=== PATIENT | male | born 1950 | race Caucasian/White ===

== ENCOUNTER 2021-06-20 00:57 | Day surgery (SDC) | payer MEDICARE, SELFPAY ==
[2021-06-12 11:22] VITALS: BMI 28.5
[2021-06-20 06:50] VITALS: BP 108/65; PULSE 64; RESP 20; TEMP 36.5; O2SAT 99; BMI 27.7
[2021-06-20] MEDS: LACTATED RINGERS 1,000 ML 150 ML IV CONT (06:57)
--- NOTE | 2021-06-20 07:19 | P.CONGI_ITS ---
Assessment and Plan Assessment and plan (1) Hx of colonic polyps: Code(s): Z86.010 - Personal history of colonic polyps Status: Acute Assessment and Plan: Patient has had colon polyps on previous examinations. He presents today for surveillance examination. Currently experiences no GI symptoms. Further recommendations to be given after endoscopy. Continue follow-up at 5 year intervals is advised. GI Consult Note Consult date/time: 06/20/21 07:19 HPI: Vimal Teixeira is a 70 year old male Presents for screening colonoscopy. Patient's current weight appetite bowel movements are normal. He denies abdominal pain. He has had no bleeding. Patient has had colon polyps on p revious examinations. Most recent examination was 7 years ago. Patient reports he has had no significant change in medical history during the intervening time. He has had no bleeding. Family history is noncontributory. [facility] Past Medical History Medical History (Updated 03/13/21 @ 21:48 by Ronda Castellanos MD) Gastroesophageal reflux High cholesterol Hx of colonic polyps Hypothyroidism Mixed hyperlipidemia Surgical History Surgical History S/P ACL repair Family History Family History Father Hypertension High cholesterol Cerebrovascular accident Skin cancer Mother Breast cancer COPD (chronic obstructive pulmonary disease) Glaucoma Grandparent Heart disease Carcinoma of colon Social History Social History Smoking status: Never smoker Second hand tobacco smoke exposure: No Alcohol intake: current Alcohol use details: Rare drinking Substance use: never Substance use type: does not use Living arrangements: alone Gender identity (if verbalized by the patient): Male Spiritual care concerns: No Meds Home Medications and Allergies Home Medications Medication Instructions Recorded Confirmed Type cholecalciferol (vitamin D3) 50 50 mcg PO DAILY 04/14/20 06/12/21 History mcg (2,000 unit) capsule coenzyme Q10 100 mg capsule 100 mg PO DAILY 04/14/20 06/12/21 History multivitamin 1 tablet PO DAILY 04/14/20 06/12/21 History levothyroxine 25 mcg tablet 25 mcg PO DAILY #90 tablet 03/13/21 06/12/21 Rx omeprazole 20 mg PO PRN PRN 06/12/21 06/12/21 History pravastatin 40 mg tablet 40 mg PO DAILY #90 tablet 06/19/21 06/20/21 Rx Allergies Allergy/AdvReac Type Severity Reaction Status Date / Time No Known Allergies Allergy Verified 06/20/21 06:41 Vital Signs Vital Signs - 24 hr 06/20/21 06:50 Temperature 97.7 F Pulse Rate 64 Respiratory Rate 20 Blood Pressure 108/65 Pulse Oximetry 99 Exam Narrative: Physical exam reveals patient to be alert. Vital signs stable. HEENT exam is unremarkable. Patient is anicteric. Lungs are clear to auscultation and percussion. Heart is without murmur or extra sounds. Abdominal exam bowel sounds are present soft nontender with no organomegaly. Digital external rectal exam is normal.
--- NOTE | 2021-06-20 08:01 | P.PNAN_ITS ---
Anes - Initial Pre Proc Eval Procedure: Operation Date: 06/20/21 08:00 Proposed Procedures p Screening Colonoscopy - Jose Rodarte MD Date/Time: 06/20/21 08:01 Surgeon: Jose Rodarte MD Pre Op Diagnosis: hx of colon polyps Patient Data Age: 70 Gender: M Height: 1.75 m Weight: 85.3 kg Last Vital Signs Temp 97.7 F 06/20/21 06:50 Pulse 64 06/20/21 06:50 Resp 20 06/20/21 06:50 BP 108/65 06/20/21 06:50 Pulse Ox 99 06/20/21 06:50 Allergies Allergy/AdvReac Type Severity Reaction Status Date / Time No Known Allergies Allergy Verified 06/20/21 06:41 Home Medications Medication Instructions Recorded Confirmed Type cholecalciferol (vitamin D3) 50 50 mcg PO DAILY 04/14/20 06/12/21 History mcg (2,000 unit) capsule coenzyme Q10 100 mg capsule 100 mg PO DAILY 04/14/20 06/12/21 History multivitamin 1 tablet PO DAILY 04/14/20 06/12/21 History levothyroxine 25 mcg tablet 25 mcg PO DAILY #90 tablet 03/13/21 06/12/21 Rx omeprazole 20 mg PO PRN PRN 06/12/21 06/12/21 History pravastatin 40 mg tablet 40 mg PO DAILY #90 tablet 06/19/21 06/20/21 Rx Patient hx anesthesia problems: none Family hx anesthesia problems: none Results Review: All pre-operative results and documents have been reviewed as part of the pre-operative evaluation. ON LICENSE OF [facility] Past Medical History Medical History (Updated 03/13/21 @ 21:48 by Ronda Castellanos MD) Gastroesophageal reflux High cholesterol Hx of colonic polyps Hypothyroidism Mixed hyperlipidemia Surgical History Surgical History S/P ACL repair Family History Family History Father Hypertension High cholesterol Cerebrovascular accident Skin cancer Mother Breast cancer COPD (chronic obstructive pulmonary disease) Glaucoma Grandparent Heart disease Carcinoma of colon Social History Social History Smoking status: Never smoker Second hand tobacco smoke exposure: No Alcohol intake: current Alcohol use details: Rare drinking Substance use: never Substance use type: does not use Living arrangements: alone Gender identity (if verbalized by the patient): Male Spiritual care concerns: No Anes - Eval Final PreProcedure Day of Procedure 06/20/21 08:01 Patient weight: normal Heart: regular rate and rhythm Lungs: clear to auscultation Airway: Mallampati scale class II Neurological: alert and oriented Last oral intake: >/= 8 hours ASA classification: II Emergent: no Anesthetic plan: proceed Anesthesia type and monitoring: general GIVS and standard monitoring Results Review: All pre-operative results and documents have been reviewed as part of the pre-operative evaluation. Informed Consent: The patient's anesthetic plan and its attendant risks and benefits were discussed with the patient/family/POA. Questions were solicited and answers provided to the satisfaction of the patient/family/POA.
[2021-06-20 08:20] VITALS: BP 97/65; PULSE 59; RESP 26; O2SAT 97
[2021-06-20 08:30] VITALS: BP 100/69; PULSE 56; RESP 18; O2SAT 100
[2021-06-20 08:40] VITALS: BP 109/73; PULSE 58; RESP 19; O2SAT 100
== END 2021-06-20 08:44 | disposition home or self-care (01) ==
PROVIDERS: PCP Family Medicine; Visit Provider Internal Medicine Gastroenterology
PROC: 0DJD8ZZ Inspection of Lower Intestinal Tract, Via Natural or Artificial Opening Endoscopic (ICD-10-PCS; CPT 45378; principal; 2021-06-20 08:00)
DX: Z12.11 Encounter for screening for malignant neoplasm of colon (principal); D12.2 Benign neoplasm of ascending colon; K64.8 Other hemorrhoids; E03.9 Hypothyroidism, unspecified; E78.2 Mixed hyperlipidemia; K21.9 Gastro-esophageal reflux disease without esophagitis
CPT/HCPCS: 45385; 88305; J2704; J7120

== ENCOUNTER 2024-06-10 11:28 | Outpatient (CLI) | payer MEDICARE, SELFPAY ==
--- NOTE | ~2024-06-10 | XR_ITS ---
3 VIEWS THORACIC SPINE Ordering provider: Rosalie Black PA-C History: . M54.50 - Low back pain, unspecified . Comparison: None. FINDINGS: VERTEBRAL BODIES: Normal height and alignment. No visible fracture or subluxation. Degenerative peña es of the spine. DISK SPACES: Multilevel degenerative disc disease. SOFT TISSUES: Normal. IMPRESSION: No acute osseous abnormality of the thoracic spine. Multilevel degenerative disc disease. Reviewed, dictated and finalized at location A. D COOK
--- NOTE | ~2024-06-10 | XR_ITS ---
3 VIEWS LUMBAR SPINE Ordering provider: Rosalie Black PA-C History: . M54.50 - Low back pain, unspecified . Comparison: None. FINDINGS: VERTEBRAL BODIES:Lucencies are projected over the L5 vertebra which may be artifactual fracture is le ss likely. Clinical correlation and if warranted CT evaluation advised. No visible subluxation. DISK SPACES: Narrowing of the disc L4-L5 and L5-S1. Facet joint disease at the level of L4-L5 and L5-S1. SOFT TISSUES: Normal. Right sacroiliitis. IMPRESSION: No definite acute osseous abnormality lumbar spine. Clinical correlation advised. Multilevel degenerative disc disease. Reviewed, dictated and finalized at location A. DEVELOPER IMPRESSION: No definite acute osseous abnormality lumbar spine. Clinical correlation advise d. Multilevel degenerative disc disease.
== END 2024-06-10 11:29 | disposition home or self-care (01) ==
LOC: MICIMG 11:30
PROVIDERS: PCP Family Medicine; Visit Provider Student in an Organized Health Care Education/Training Program
DX: M51.369 Other intervertebral disc degeneration, lumbar region without mention of lumbar back pain or lower extremity pain (principal); M51.370 Other intervertebral disc degeneration, lumbosacral region with discogenic back pain only; M51.34 Other intervertebral disc degeneration, thoracic region
CPT/HCPCS: 72070; 72100

== ENCOUNTER 2024-06-17 12:47 | Outpatient (CLI) | payer MEDICARE, SELFPAY ==
--- NOTE | ~2024-06-17 | CT_ITS ---
CT lumbar spine wo con Ordering provider: Rosalie Black PA-C History: 73 years Male with . M54.50 - Low back pain, unspecified . Comparison: None. Technique: CT lumbar spine without contrast. Automated exposure control and iterative reconstruction technique were employed. The dose-length product was 852.87 mGy-cm. FINDINGS: VERTEBRAE: Normal height and alignment. No subluxation or visible acute fracture. Degenerative change s of the spine. DISC SPACES: Narrowing of the disc L2-L3, L4-L5 and L5 is noted. Schmorl's node is seen inferiorly in L2. Narrowing of the disc L3-4, L4-L5 and L5-S1. Facet joint disease at the level of L2-L3 bilateral ly. T12-L1: No stenosis. L1-L2: No stenosis. L2-L3: No stenosis. Mild diffuse disc bulge. L3-L4: No stenosis. Diffuse disc bulge. L4-L5: No stenosis. Central disc protrusion with osteophyte. Narrowing of the foramina by osteophyte s. Nerve root compression is noted. L5-S1: No stenosis. Central disc protrusion with osteophytes. Narrowing of the foramina is seen bila terally with possible compression. PARASPINOUS SOFT TISSUES: Normal aorta. Fusion is seen in both sacroiliac joints. IMPRESSION: No acute osseous abnormality. Multilevel degenerative disc disease.. Multilevel disc bulges with narrowing of the intervertebral foramena at the levels of L4-L5 and L5-S1 . Reviewed, dictated and finalized at location A. IMPRESSION: No acute osseous abnormality. Multilevel degenerative disc disease.. Multilevel disc bulges with narrowing of the intervertebral foramena at the lev els of L4-L5 and L5-S1.
== END 2024-06-17 12:48 | disposition home or self-care (01) ==
LOC: MICIMG 12:47
PROVIDERS: PCP Family Medicine; Visit Provider Student in an Organized Health Care Education/Training Program
DX: M51.360 Other intervertebral disc degeneration, lumbar region with discogenic back pain only (principal); M51.369 Other intervertebral disc degeneration, lumbar region without mention of lumbar back pain or lower extremity pain; M48.061 Spinal stenosis, lumbar region without neurogenic claudication
CPT/HCPCS: 72131

== ENCOUNTER 2025-03-02 10:08 | Outpatient (CLI) | payer MEDICARE, SELFPAY ==
--- NOTE | ~2025-03-02 | XR_ITS ---
EXAMINATION: XR hand RT min 3V, 03/02/2025 10:20 [employer] HISTORY: M79.641 - Pain in right hand COMPARISON: No comparisons available. Findings: No acute fracture or malalignment. There are severe degenerative changes of the first metacarpal carpal joint, no erosions are identified. There are moderate degenerative changes of the distal and proximal interphalangeal joints Soft tissues unremarkable. Impression: No acute fracture or malalignment. Reviewed, dictated and finalized at location P. ETARIAL TEACHER Impression: No acute fracture or malalignment.
== END 2025-03-02 10:09 | disposition home or self-care (01) ==
LOC: MICIMG 10:09
PROVIDERS: PCP Plastic Surgery; Visit Provider Plastic Surgery
DX: M79.641 Pain in right hand (principal)
CPT/HCPCS: 73130